=== PATIENT | female | born 1975 | race Caucasian/White ===

== ENCOUNTER 2016-11-23 14:49 | Emergency (ER) | payer SELFPAY ==
[~2016-11-23] VITALS: Ht 162.6 cm; Wt 75.5 kg
[~2016-11-23 14:49] MED LIST: BACTDS PO
[2016-11-23 15:48] VITALS: Ht 162.6 cm; Wt 75.5 kg
== END 2016-11-23 17:42 | disposition left against medical advice (07) ==
LOC: FTE 14:49
DX: Z53.21 Procedure and treatment not carried out due to patient leaving prior to being seen by health care provider (principal)